=== PATIENT | female | born 1940 | race Caucasian/White ===

== ENCOUNTER 2017-06-22 07:45 | Emergency (ER) | payer OTHER, MEDICARE ==
[2017-06-22 08:10] VITALS: BP 186/89
--- NOTE | 2017-06-22 08:29 | EDM.PDOC ---
ED HPI GENERAL MEDICAL PROBLEM - General Chief Complaint: Lower Extremity Injury/Pain Stated Complaint: RT KNEE INJURY Time Seen by Provider: 06/22/17 08:24 Source of Information: Reports: Patient History Limitations: Reports: No Limitations - History of Present Illness INITIAL COMMENTS - FREE TEXT/NARRATIVE: 76-year-old female presents to the ED with acute blunt trauma to her right anterior knee. 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 She reports that she got up from her chair got tripped up by the numerous computer cords underneath the desk where she works. This caused her to fall with a direct blow to the right anterior knee particularly over the patella. A painful to try to put any weight on it since injury half an hour ago. Denies injury to any other body parts. Onset: Today Onset Date: 06/22/17 Onset Time: 07:55 Duration: Minutes: Location: Reports: Upper Extremity, Right Quality: Reports: Ache Severity: Moderate Improves with: Reports: None Worsens with: Reports: Movement (Weightbearing) Context: Reports: Trauma. 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 (see below) Right Knee Pain Score (Numeric/FACES): 8 - Related Data Allergies Allergy/AdvReac Type Severity Reaction Status Date / Time No Known Allergies Allergy Verified 06/22/17 08:01 Home Meds: Home Meds Hydrochlorothiazide [Hydrochlorothiazide] 25 mg PO DAILY 06/22/17 [History] Levothyroxine 75 mg PO DAILY 06/22/17 [History] oxyCODONE HCl/Acetaminophen [Percocet 5-325 mg Tablet] 1 - 2 each PO Q4H PRN # 20 tablet 06/22/17 [Rx] Past Medical History Cardiovascular History: Reports: Hypertension 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: Oncologic (Cancer) History: Reports: Lung, Thyroid Social & Family History - Tobacco Use Smoking Status *Q: Never Smoker Second Hand Smoke Exposure: No - Caffeine Use Caffeine Use: Reports: Coffee - Recreational Drug Use Recreational Drug Use: No - Living Situation & Occupation Living situation: Reports: Occupation: Employed Review of Systems - Review of Systems Review Of Systems: See Below Constitutional: Denies: Chills, Diaphoresis, Fever, Weakness, Other Eyes: Reports: No Symptoms, Other (Wears eyeglasses) Ears: Reports: No Symptoms Nose: Reports: No Symptoms Mouth/Throat: Reports: No Symptoms Respiratory: Reports: Shortness of Breath Cardiovascular: Reports: No Symptoms GI/Abdominal: Reports: No Symptoms Genitourinary: Reports: No Symptoms Musculoskeletal: Reports: Joint Pain Skin: Reports: No Symptoms (Right knee pain at present.) Neurological: Reports: No Symptoms Psychiatric: Reports: No Symptoms ED EXAM, GENERAL - Physical Exam Exam: See Below Exam Limited By: Uncooperative General Appearance: WD/WN, Mild Distress Eye Exam: Bilateral Eye: Normal Inspection Neck: Normal Inspection, Supple, Non-Tender, Full Range of Motion. No: Lymphadenopathy (L) Respiratory/Chest: No Respiratory Distress, Lungs Clear, Normal Breath Sounds, No Accessory Muscle Use, Chest Non-Tender, Other Cardiovascular: Normal Peripheral Pulses, Regular Rate, Rhythm, No Edema, No Gallop, No Murmur (No chest wall injuries) Extremities: Other (Patient has swelling of the right knee particularly over the patella. The prepatellar bursa appears to be intact. There is a small effusion appreciated in the joint even within the hour of injury. Patellofemoral movement appears to be intact.) Neurological: Alert, Oriented, CN II-XII Intact, Normal Cognition, Normal Gait Psychiatric: Normal Affect, Normal Mood Skin Exam: Warm, Dry, Intact, Normal Color, No Rash Course - Vital Signs Last Recorded V/S: Last Vital Signs Temp 36.4 C 06/22/17 08:04 Pulse 67 06/22/17 08:04 Resp 12 06/22/17 08:04 BP 186/89 H 06/22/17 08:04 Pulse Ox 100 06/22/17 08:04 - Radiology Interpretation Free Text/Narrative:: 76-year-old female attends the ED with a work-related injury. 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 This caused her to fall with blunt force trauma to the right anterior knee. Examination shows swelling and a early effusion present. Plan a 3 view x-ray of the right need to be done. - Re-Assessments/Exams Free Text/Narrative Re-Assessment/Exam: 06/22/17 08:49 x-rays reveal a comminuted fracture of the patella.. This is going to require surgical repair I believe. Jay have her see Dr. Whitney in consultation and he happens to have an opening in clinic today. She'll be immobilized in a knee immobilizer and will be crutch walking nonweightbearing. At this time she requests nothing for pain but I will write a prescription for Percocet 5/3/25 milligram tablets to be used in case she requires pain management greater than Motrin or Tylenol. She'll be elevating the leg is much as possible with ice pack to the area for one and one half hour out of every 4 hours today and tomorrow. Departure - Departure Time of Disposition: 08:50 Disposition: Home, Self-Care 01 Condition: Fair Clinical Impression: Fracture of patella, right, closed Qualifiers: Encounter type: initial encounter Fracture morphology: comminuted Fracture alignment: nondisplaced Qualified Code(s): S82.044A - Nondisplaced comminuted fracture of right patella, initial encounter for closed fracture - Discharge Information Prescriptions: oxyCODONE HCl/Acetaminophen [Percocet 5-325 mg Tablet] 1 - 2 each PO Q4H PRN # 20 tablet PRN Reason: pain relief. Instructions: Patellar Fracture, Adult Referrals: Shiv Adams MD [Primary Care Provider] - Forms: ED Department Discharge Additional Instructions: Evaluation the emergency room this morning in regards to work related injury. Tripped on fall on cords under the desk cause you to suffer blunt force trauma to the anterior right knee. Trace confirm a comminuted fracture of the right knee Or patella. Kneecap is in 3 pieces. Surgical opinion is required. Dr. Dominguez has an opening today in office and we will send you there today for consultation in this regard. May use Motrin 600 mg every 6 hours for pain relief. I did write his prescription for Percocet 5/3/25 milligram tablets as the knee is going to swell a good deal over the next 48 hours. Use 1 tablet every 4-6 hours as needed in addition to the Motrin 600 mg every 6 hours as needed. Treatment is knee immobilizer edition with knee immobilizer nonweightbearing crutch walking. Ice pack to the area for one half hour out of every 4 hours today and tomorrow.
--- NOTE | 2017-06-22 10:04 | CR ---
Right knee: Four views of the right knee were obtained. Comparison: No previous knee exam. Comminuted patellar fracture is identified. Greatest fracture displacement is approximately 8 mm. Joint effusion is seen. Incidental spur at the attachment of the quadriceps tendon to the patella is seen. Mild medial joint space narrowing is present. Bony structures are osteopenic. Impression: 1. Comminuted patellar fracture, small joint effusion. 2. Mild medial joint space narrowing. Diagnostic code #3
== END 2017-06-22 09:21 | disposition home or self-care (01) ==
LOC: JD.ED 07:45
DX: S82.044A Nondisplaced comminuted fracture of right patella, initial encounter for closed fracture (principal); I10 Essential (primary) hypertension; Z85.118 Personal history of other malignant neoplasm of bronchus and lung; Z85.850 Personal history of malignant neoplasm of thyroid; Z79.899 Other long term (current) drug therapy; W18.09XA Striking against other object with subsequent fall, initial encounter; Y93.89 Activity, other specified; Y99.0 Civilian activity done for income or pay
CPT/HCPCS: 73564-26-RT; 73564-RT; 99283; 99284

== ENCOUNTER 2023-05-20 20:17 | Emergency (ER) | payer MEDICARE, OTHER ==
[2023-05-20] MEDS ORDERED: Rivaroxaban 10 MG Tab PO STA (21:10)
[2023-05-20 21:17] LABS: INR 0.96; PROTHROMBIN TIME 10.3 SECONDS (9.7-12.0)
[2023-05-20 21:18] LABS: D-DIMER QUANTITATIVE 0.47 mg/L (0.19-0.50)
[2023-05-20 21:19] LABS: PTT,PARTIAL THROMBOPLSTIN TIME 25.8 SECONDS (21.7-31.4)
[2023-05-20 21:24] LABS: MAGNESIUM 2.1 mg/dL (1.8-2.4)
[2023-05-21] MEDS ORDERED: Sodium Chloride 0.9% 1,000 ML IV SCH (00:15)
[2023-05-21] MEDS ORDERED: Iopamidol 612 MG/ML 100 ML Bottle IVPUSH ONE (01:15)
[2023-05-21 02:13] VITALS: BP 170/72; PULSE 74
== END 2023-05-21 02:17 | disposition home or self-care (01) ==
LOC: JD.ED 20:17
DX: I48.91 Unspecified atrial fibrillation (principal); I10 Essential (primary) hypertension; E03.9 Hypothyroidism, unspecified; Z86.16 Personal history of COVID-19; Z79.899 Other long term (current) drug therapy
CPT/HCPCS: 36415; 71046; 71260; 83735; 83880; 84484; 85379; 85610; 85730; 93005; 99285; A9270; J7030; Q9967; 93010; 99284

== ENCOUNTER 2024-03-16 20:30 | Emergency (ER) | payer MEDICARE ==
[2024-03-16] MEDS ORDERED: hydrALAZINE 20 MG/ML SDV IVPUSH PRN (20:44)
[2024-03-16] MEDS: Labetalol 100 MG/20 ML MDV IVPUSH ONE (21:10)
[2024-03-16 21:18] LABS: BASOPHILS PERCENT AUTO 0.5 % (0.0-1.0); EOSINOPHILS ABSOLUTE AUTO 0.2 K/mm3 (0.0-0.4); EOSINOPHILS PERCENT AUTO 3.4 % (0.0-6.0); HEMATOCRIT 40.4 % (37.0-47.0); HEMOGLOBIN 12.9 gm/dl (12.0-16.0); IMMATURE GRAN ABSOLUTE AUTO 0.01 K/mm3 (0.00-0.05); IMMATURE GRAN PERCENT AUTO 0.2 % (0.0-0.4); LYMPHOCYTES ABSOLUTE AUTO 1.9 K/mm3 (1.0-4.8); LYMPHOCYTES PERCENT AUTO 31.2 % (24.0-44.0); MEAN CORPUSCULAR HEMOGLOBIN 26.8 pg (28.0-32.0); MEAN CORPUSCULAR HGB CONC 31.9 g/dl (32.0-36.0); MEAN PLATELET VOLUME 9.6 fl (9.4-12.3); MONOCYTES ABSOLUTE AUTO 0.6 K/mm3 (0.0-0.8); MONOCYTES PERCENT AUTO 9.4 % (0.0-8.0); NEUTROPHILS ABSOLUTE AUTO 3.4 K/mm3 (1.8-7.7); NEUTROPHILS PERCENT AUTO 55.3 % (41.0-71.0); PLATELET COUNT,PLT 311 K/mm3 (150-400); RED BLOOD CELL COUNT 4.81 M/mm3 (4.10-5.30); WHITE BLOOD CELL COUNT,WBC 6.18 K/mm3 (3.9-11.3)
[2024-03-16] MEDS: Sodium Chloride 0.9% 10 ML Syringe FLUSH PRN (21:24)
[2024-03-16 21:56] LABS: A/G RATIO 1.2 (1-2); ALBUMIN 4.1 g/dl (3.4-5.0); ANION GAP 8.5 (5-15); BILIRUBIN TOTAL 0.3 mg/dL (0.2-1.0); CALCIUM 9.3 mg/dL (8.5-10.1); EST CRCL DRUG DOSING (CG) 33.51 mL/min; POTASSIUM,K 3.5 mEq/L (3.5-5.1); PROTEIN TOTAL,TP 7.5 g/dl (6.4-8.2); TSH 5.5 uIU/mL (0.358-3.74)
[2024-03-16] MEDS: Hydrochlorothiazide 12.5 MG Cap PO ONE (21:57)
[2024-03-16 22:21] LABS: T4 FREE 1.19 ng/dL (0.76-1.46)
[2024-03-17 00:21] VITALS: BP 170/79; PULSE 56
== END 2024-03-16 23:05 | disposition home or self-care (01) ==
LOC: JD.ED 20:30
DX: I10 Essential (primary) hypertension (principal); E03.9 Hypothyroidism, unspecified; R74.01 Elevation of levels of liver transaminase levels; E78.00 Pure hypercholesterolemia, unspecified; Z86.16 Personal history of COVID-19; Z79.899 Other long term (current) drug therapy
CPT/HCPCS: 36415; 70450; 71046; 80053; 83880; 84439; 84443; 84484; 85025; 93005; 96374; 99284; A9270; J1921; J3490; 93010